=== PATIENT | male | born 1980 | race Caucasian/White ===

== ENCOUNTER 2018-08-18 07:05 | Emergency (ER) | payer BC ==
[2018-08-18 07:37] VITALS: BP 159/98
[2018-08-18 08:08] LABS: Influenza A Molecular NEGATIVE (Negative); Influenza B Molecular NEGATIVE (Negative)
--- NOTE | 2018-08-18 08:20 | UC ---
Throat Pain/Nasal Julián HPI - HPI Summary HPI Summary: 37-year-old male comes in with a chief complaint of 3-4 days of runny nose sore throat cough chest congestion and body aches. He started [id number] medications which helped some with the symptoms. 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 Sputum is slightly cream-colored. He is not a smoker. - History of Current Complaint Chief Complaint: UCRespiratory Stated Complaint: BODY ACHES,COUGH Time Seen by Provider: 08/18/18 08:12 Pain Intensity: 0 - Allergies/Home Medications Allergies/Adverse Reactions: Allergies Allergy/AdvReac Type Severity Reaction Status Date / Time No Known Allergies Allergy Verified 08/18/18 07:31 Home Medications: Home Medications Mv-Min/Vit C/Glut/Lysine/Hb124 [Airborne] 1 tab PO ONCE PRN 08/18/18 [History Confirmed 08/18/18] PMH/Surg Hx/FS Hx/Imm Hx Previously Healthy: Yes - Surgical History Surgical History: None - Family History Known Family History: Positive: None - Social History Alcohol Use: Occasionally Substance Use Type: None Smoking Status (MU): Former Smoker Type: Cigarettes Amount Used/How Often: 1/2 ppd Have You Smoked in the Last Year: Yes When Did the Patient Quit Smoking/Using Tobacco: 2-3 years ago Household Exposure Type: Cigarettes - Immunization History Most Recent Influenza Vaccination: 04/12/15 Review of Systems All Other Systems Reviewed And Are Negative: Yes Constitutional: Positive: Negative Skin: Positive: Negative Eyes: Positive: Negative ENT: Positive: Sore Throat, Nasal Discharge, Sinus Congestion Respiratory: Positive: Cough Cardiovascular: Positive: Negative Gastrointestinal: Positive: Negative Motor: Positive: Negative Neurovascular: Positive: Negative Musculoskeletal: Positive: Negative Neurological: Positive: Negative Psychological: Positive: Negative Is Patient Immunocompromised?: No Physical Exam Triage Information Reviewed: Yes Appearance: No Pain Distress, Well-Nourished, Ill-Appearing - MILD Vital Signs: Initial Vital Signs Temp 98.8 F 08/18/18 07:32 Pulse 92 08/18/18 07:32 Resp 16 08/18/18 07:32 BP 159/98 08/18/18 07:32 Pulse Ox 100 08/18/18 07:32 Vital Signs Reviewed: Yes Eye Exam: Normal Eyes: Positive: Conjunctiva Clear ENT: Positive: Pharyngeal erythema, Nasal drainage, TMs normal Neck exam: Normal Neck: Positive: Supple Respiratory: Positive: Lungs clear, Normal breath sounds, No respiratory distress Cardiovascular: Positive: RRR Musculoskeletal Exam: Normal Musculoskeletal: Positive: Strength Intact, ROM Intact Neurological Exam: Normal Neurological: Positive: Alert, Muscle Tone Normal Psychological Exam: Normal Psychological: Positive: Age Appropriate Behavior Skin Exam: Normal Throat Pain/Nasal Course/Dx - Course Course Of Treatment: DISCUSSED VIRAL VERSES BACTERIAL INFECTION AND THE ROLE OF ANTIBIOTICS. THE PATIENT WISHES TO BE ON ANTIBIOTIC AT THIS TIME. - Differential Dx/Diagnosis Provider Diagnosis: Upper respiratory infection Discharge - Sign-Out/Discharge Documenting (check all that apply): Patient Departure All imaging exams completed and their final reports reviewed: No Studies - Discharge Plan Condition: Stable Disposition: HOME Prescriptions: Amoxicillin PO (*) [Amoxicillin 875 MG (*)] 875 mg PO BID #20 tab Patient Education Materials: Upper Respiratory Infection (ED) Forms: *Work Release Referrals: [facility] [place] [facility] [Outside] Additional Instructions: FOLLOW UP WITH YOUR DOCTOR IF NOT COMPLETELY IMPROVED. GET RECHECKED SOONER WITH ANY WORSENING OF YOUR CONDITION OR QUESTIONS OR CONCERNS. - Billing Disposition and Condition Condition: STABLE Disposition: Home
== END 2018-08-18 08:24 | disposition home or self-care (01) ==
LOC: UCCORT 07:05
DX: J06.9 Acute upper respiratory infection, unspecified (principal); Z87.891 Personal history of nicotine dependence
CPT/HCPCS: 99212; G0463

== ENCOUNTER 2018-11-25 08:39 | Emergency (ER) | payer BC ==
[2018-11-25 08:57] VITALS: BP 157/102
--- NOTE | 2018-11-25 09:17 | UC ---
Upper Extremity HPI - HPI Summary HPI Summary: right arm pain x 1 day s/p fall on his right arm this morning , pain of his right elbow weakness for her hand , having difficulty griping things, mild numbness of his right hand mild neck pain , - History of Current Complaint Chief Complaint: UCUpperExtremity Stated Complaint: RIGHT ARM INJURY Time Seen by Provider: 11/25/18 09:01 Hx Obtained From: Patient Onset/Duration: Sudden Onset, Lasting Days - 1, Still Present Severity Initially: Moderate Severity Currently: Moderate Pain Intensity: 5 Location Of Pain: Is Discrete @ - right elbow , right hand Character: Dull, Aching Aggravating Factor(s): Movement, Lifting, Flexion, Extension Alleviating Factor(s): Nothing Associated Signs And Symptoms: Positive: Weakness - right hand, Numbness/ Tingling - right hand. Negative: Swelling, Redness, Bruising, Fever - Allergies/Home Medications Allergies/Adverse Reactions: Allergies Allergy/AdvReac Type Severity Reaction Status Date / Time No Known Allergies Allergy Verified 11/25/18 08:53 Home Medications: Home Medications NK [No Home Medications Reported] 11/25/18 [History Confirmed 11/25/18] PMH/Surg Hx/FS Hx/Imm Hx Previously Healthy: Yes - Surgical History Surgical History: None - Family History Known Family History: Positive: None Negative: Diabetes - Social History Alcohol Use: Occasionally Substance Use Type: None Smoking Status (MU): Former Smoker Type: Cigarettes Amount Used/How Often: 1/2 ppd Length of Time of Smoking/Using Tobacco: 1 PPD x 20+ Years Have You Smoked in the Last Year: Yes When Did the Patient Quit Smoking/Using Tobacco: 2014 Household Exposure Type: Cigarettes - Immunization History Most Recent Influenza Vaccination: 04/12/15 Review of Systems All Other Systems Reviewed And Are Negative: Yes Constitutional: Positive: Negative Skin: Positive: Negative Eyes: Positive: Negative ENT: Positive: Negative Respiratory: Positive: Negative Cardiovascular: Positive: Negative Genitourinary: Positive: Negative Neurovascular: Positive: Negative Musculoskeletal: Positive: Negative, Arthralgia, Other: Physical Exam Triage Information Reviewed: Yes Appearance: Well-Appearing, No Pain Distress, Well-Nourished Vital Signs: Initial Vital Signs Temp 98.6 F 11/25/18 08:51 Pulse 138 11/25/18 08:51 Resp 16 11/25/18 08:51 BP 157/102 11/25/18 08:51 Pulse Ox 100 11/25/18 08:51 Vital Signs Reviewed: Yes Eye Exam: Normal Eyes: Positive: Conjunctiva Clear ENT: Positive: Normal ENT inspection, Hearing grossly normal, Pharynx normal Neck exam: Normal Neck: Positive: Supple, Nontender, No Lymphadenopathy Respiratory: Positive: Chest non-tender, Lungs clear, Normal breath sounds Cardiovascular: Positive: RRR, No Murmur, Pulses Normal Musculoskeletal: Positive: Other: - right elbow: no swelling, no tendnerness, no erythema, right hand : no swelling , no tenderness, decrease collections assistant strength of right hand Upper Extremity Course/Dx - Differential Dx/Diagnosis Provider Diagnosis: Contusion of right ulnar nerve Discharge - Sign-Out/Discharge Documenting (check all that apply): Patient Departure All imaging exams completed and their final reports reviewed: No Studies - Discharge Plan Condition: Stable Disposition: HOME Patient Education Materials: Paresthesia (ED) Referrals: Mckenzie Crawford NP [Primary Care Provider] - 7 Days Additional Instructions: contusion of the nerve in your arm cont. with rest, ice, take Ibuprofen as needed for pain the weakness will improve in about 5 to 7 days please follow up if not better in one week - Billing Disposition and Condition Condition: STABLE Disposition: Home
== END 2018-11-25 09:13 | disposition home or self-care (01) ==
LOC: UCCORT 08:39
DX: S44.01XA Injury of ulnar nerve at upper arm level, right arm, initial encounter (principal); W18.30XA Fall on same level, unspecified, initial encounter; Z87.891 Personal history of nicotine dependence
CPT/HCPCS: 99211; G0463

== ENCOUNTER 2019-03-27 08:59 | Emergency (ER) | payer BC, OTHER ==
[2019-03-27] MEDS ORDERED: Tetan/Diph/Pertus SYR(Tdap)* 0.5 ML SYR(BOOSTRIX) use SYR IM ONE (09:33)
[2019-03-27] MEDS ORDERED: Lidocaine 1% MPF* 2 ML VIAL INJ ONE (09:46)
--- NOTE | 2019-03-27 09:47 | UC ---
UC General HPI - HPI Summary HPI Summary: PER TRIAGE, pt cut L thumb on part inside of a freezer motor/fan. Occurred at work just TELE[employer]ICATION[employer] TE[employer]. Keeps bleeding. No limited rom or FB sensation. Last tetanus is not known. - History of Current Complaint Chief Complaint: UCLaceration Stated Complaint: LACERATION-LT THUMB Time Seen by Provider: 03/27/19 09:32 Hx Obtained From: Patient Onset/Duration: Sudden Onset Pain Intensity: 5 Associated Signs & Symptoms: Negative: Weakness - Allergy/Home Medications Allergies/Adverse Reactions: Allergies Allergy/AdvReac Type Severity Reaction Status Date / Time No Known Allergies Allergy Verified 03/27/19 09:13 PMH/Surg Hx/FS Hx/Imm Hx Cardiovascular History: Hypertension - opting to not tx - Surgical History Surgical History: None - Family History Known Family History: Positive: None Negative: Diabetes - Social History Occupation: Employed Full-time Alcohol Use: Occasionally Substance Use Type: None Smoking Status (MU): Former Smoker Type: Cigarettes Amount Used/How Often: 1/2 ppd Length of Time of Smoking/Using Tobacco: 1 PPD x 20+ Years Have You Smoked in the Last Year: Yes When Did the Patient Quit Smoking/Using Tobacco: 2014 Household Exposure Type: Cigarettes - Immunization History Most Recent Influenza Vaccination: 04/12/15 Most Recent Tetanus Shot: Unknown Review of Systems All Other Systems Reviewed And Are Negative: No Constitutional: Negative: Fever Musculoskeletal: Negative: Decreased ROM Neurological: Negative: Weakness, Paresthesia, Numbness Physical Exam Triage Information Reviewed: Yes Appearance: Well-Appearing Vital Signs: Initial Vital Signs Temp 98.5 F 03/27/19 09:10 Pulse 79 03/27/19 09:10 Resp 18 03/27/19 09:10 BP 156/109 03/27/19 09:10 Pulse Ox 100 03/27/19 09:10 Vital Signs Reviewed: Yes Musculoskeletal: Positive: ROM Intact Skin Exam: Normal, Other - L distal thumb has a [id number] skin flap type laceration. The flap is pale. Tiny bleeder distal end. thumb has full s/v/m function. Course/Dx - Course Course Of Treatment: Procedure: time out. wound irrigated with sterile water. no fb/mm/tendon/ ligament injuries. prep betadine . drape applied. closed 5-0 nylon and purse string stitch with ongoing bleeding thus removed and replaced/repositioned with 4-nylon purse string stitch. reinforced with 2 steri strips after which bleeding stopped. sterile technique used . pt tolerated well. gross v/m intact pre and post. pt advised flap will likely turn into a scab but will help control bleeding and protect the site until then. bandaide applied. - Diagnoses Provider Diagnosis: Laceration of left thumb Discharge ED - Sign-Out/Discharge Documenting (check all that apply): Patient Departure All imaging exams completed and their final reports reviewed: No Studies - Discharge Plan Condition: Stable Disposition: HOME Patient Education Materials: Care For Your Stitches (DC), Steristrips (ED) Referrals: Mckenzie Crawford NP [Primary Care Provider] - If Needed Additional Instructions: RETURN HERE IN 7-10 DAYS FOR SUTURE REMOVAL. RETURN SOONER FOR ANY CONCERNS. - Billing Disposition and Condition Condition: STABLE Disposition: Home
[2019-03-27 10:33] VITALS: BP 164/118
== END 2019-03-27 10:34 | disposition home or self-care (01) ==
LOC: UCCORT 08:59
DX: W45.8XXA Other foreign body or object entering through skin, initial encounter (principal); Y93.9 Activity, unspecified; Y92.9 Unspecified place or not applicable; Z23 Encounter for immunization; I10 Essential (primary) hypertension; Z87.891 Personal history of nicotine dependence
CPT/HCPCS: 12001; 90471; 90715; 99211; G0463

== ENCOUNTER 2019-04-04 11:59 | Emergency (ER) | payer OTHER ==
[2019-04-04 12:48] VITALS: BP 151/98
--- NOTE | 2019-04-04 12:55 | UC ---
General HPI - HPI Summary HPI Summary: stitch L thumb 03/27/19. here for removal. no complaints. - History of Current Complaint Chief Complaint: UCUpperExtremity Stated Complaint: WC-REMOVE STITCHES-DONE HERE Time Seen by Provider: 04/04/19 12:50 Hx Obtained From: Patient Pain Intensity: 0 Associated Signs & Symptoms: Positive: Fever, Weakness - Allergy/Home Medications Allergies/Adverse Reactions: Allergies Allergy/AdvReac Type Severity Reaction Status Date / Time No Known Allergies Allergy Verified 04/04/19 12:48 PMH/Surg Hx/FS Hx/Imm Hx Cardiovascular History: Hypertension - f/u with pcp in week for tx - Surgical History Surgical History: None - Family History Known Family History: Positive: None Negative: Diabetes - Social History Occupation: Employed Full-time Lives: With Family Alcohol Use: Occasionally Substance Use Type: None Smoking Status (MU): Light Every Day Tobacco Smoker Type: Cigarettes Amount Used/How Often: 1/2 ppd Length of Time of Smoking/Using Tobacco: 1 PPD x 20+ Years Have You Smoked in the Last Year: Yes When Did the Patient Quit Smoking/Using Tobacco: 2014 Household Exposure Type: Cigarettes - Immunization History Most Recent Influenza Vaccination: 04/12/15 Most Recent Tetanus Shot: Unknown Review of Systems All Other Systems Reviewed And Are Negative: No Constitutional: Negative: Fever Skin: Negative: Rash Musculoskeletal: Positive: Edema. Negative: Decreased ROM Neurological: Negative: Weakness, Paresthesia, Numbness Physical Exam Triage Information Reviewed: Yes Appearance: Well-Appearing Vital Signs: Initial Vital Signs Temp 98.8 F 04/04/19 12:41 Pulse 70 04/04/19 12:41 Resp 18 04/04/19 12:41 BP 151/98 04/04/19 12:41 Pulse Ox 98 04/04/19 12:41 Vital Signs Reviewed: Yes Musculoskeletal: Positive: Other: - L thumb has full s/v/m Neurological: Positive: Alert Psychological: Positive: Age Appropriate Behavior Skin Exam: Normal, Other - L thumb has 2 steri strips. no red or swelling. Course/Dx - Course Course Of Treatment: L thumb procedure: steri strips removed. wound healed. suture removed. pt tolerated well. - Diagnoses Provider Diagnosis: Visit for suture removal Discharge ED - Sign-Out/Discharge Documenting (check all that apply): Patient Departure All imaging exams completed and their final reports reviewed: No - Discharge Plan Condition: Stable Disposition: HOME Patient Education Materials: Stitches Removal (ED) Referrals: Mckenzie Crawford NP [Primary Care Provider] - If Needed - Billing Disposition and Condition Condition: STABLE Disposition: Home - Attestation Statements Provider Attestation: Per institutional requirements, I have reviewed the chart, however, I was not consulted specifically or made aware of this patient by the midlevel provider. I did not personally evaluate, interact with , or disposition this patient.
== END 2019-04-04 13:02 | disposition home or self-care (01) ==
LOC: UCCORT 11:59
DX: Z48.02 Encounter for removal of sutures (principal); I10 Essential (primary) hypertension; F17.210 Nicotine dependence, cigarettes, uncomplicated